=== PATIENT | male | born 1985 | race Hispanic/Latino ===

== ENCOUNTER 2018-06-17 20:53 | Emergency (ER) | payer OTHER ==
[2018-06-17] MEDS ORDERED: cloNIDine 0.1 MG TAB ONE (21:24)
== END 2018-06-17 21:45 | disposition home or self-care (01) ==
LOC: MADERS 20:53
DX: I10 Essential (primary) hypertension (principal); Z79.899 Other long term (current) drug therapy
CPT/HCPCS: 99283

== ENCOUNTER 2018-06-20 20:37 | Emergency (ER) | payer OTHER, SELFPAY ==
[2018-06-20 21:24] LABS: #Basophils 0.1 thou/uL (0.0-0.2); #Eosinphils 0.1 thou/uL (0.0-0.7); #Lymphocytes 2.5 thou/uL (1.20-3.40); #Monocytes 0.8 thou/uL (0.11-0.59); #Neutrophils 6.3 thou/uL (1.40-6.50); %Basophils 1.1 % (0.0-1.0); %Lymphocytes 25.4 % (21.0-51.0); %Monocytes 7.7 % (0.0-10.0); %Neutrophils 64.8 % (42.0-75.0); Hemoglobin 16.3 g/dL (14.0-18.0); Mean Corpuscular Hemoglobin 29.4 pg (27.0-31.0); Mean Corpuscular Volume 86.4 fL (78.0-98.0); Mean Platelet Volume 6.5 fL (7.4-10.4); Platelet Count 252 thou/uL (130-400); RBC Distribution Width 11.2 % (11.5-14.5); Red Blood Cell (RBC) Count 5.54 mill/uL (4.70-6.10); White Blood Cell (WBC) Count 9.8 thou/uL (4.8-10.8)
[2018-06-20 21:43] LABS: ALT (SGPT) 97 U/L (8-55); AST (SGOT) 42 U/L (5-34); Albumin 4.9 g/dL (3.5-5.0); Alkaline Phosphatase 102 U/L (40-150); Anion Gap 12 mmol/L (10-20); BUN (Urea Nitrogen) 19 mg/dL (8.9-20.6); Bilirubin, Total 0.5 mg/dL (0.2-1.2); Calc. Creatinine Clearance 0 mL/min (70-130); Calcium 9.6 mg/dL (7.8-10.44); Carbon Dioxide 24 mmol/L (22-29); Chloride 107 mmol/L (98-107); Estimated GFR-MDRD 62; Globulin 3.6 g/dL (2.4-3.5); Glucose 136 mg/dL (70-105); Potassium 3.4 mmol/L (3.5-5.1); Protein, Total 8.5 g/dL (6.0-8.3); Sodium 140 mmol/L (136-145)
--- NOTE | 2018-06-20 21:43 | RAD ---
CHEST TWO VIEWS: HISTORY: Hypertension and chest pain. COMPARISON: None. FINDINGS: Two views of the chest show normal sized cardiomediastinal silhouette. There is no evidence of consol idation, mass, or pleural effusion. The bones are unremarkable. IMPRESSION: No evidence of acute cardiopulmonary disease. POS: [facility]
[2018-06-20 22:00] LABS: CKMB 1.4 ng/mL (0-6.6)
[2018-06-20] MEDS ORDERED: cloNIDine 0.1 MG TAB ONE (22:09)
[2018-06-20] MEDS ORDERED: Sodium Chloride 0.9% 2,000 ML ONE (22:12)
== END 2018-06-20 23:35 | disposition short-term general hospital (02) ==
LOC: MADERS 20:37
DX: R94.31 Abnormal electrocardiogram [ECG] [EKG] (principal); R79.89 Other specified abnormal findings of blood chemistry; R00.0 Tachycardia, unspecified; I10 Essential (primary) hypertension
CPT/HCPCS: 36415; 71046; 80053; 82553; 84484; 85025; 85379; 93005; 96360; J7050

== ENCOUNTER 2018-06-28 21:42 | Emergency (ER) | payer OTHER, SELFPAY ==
--- NOTE | 2018-06-28 22:57 | RAD ---
EXAM: CHEST PA AND LATERAL: 06/28/18 HISTORY: 33-year-old male with history of shortness of breath. COMPARISON: 06/20/18. Heart size is within normal limits. The lungs are clear. No pneumonia, edema, or pleural effusions. IMPRESSION: No acute intrathoracic disease. POS: [facility]
== END 2018-06-28 23:13 | disposition home or self-care (01) ==
LOC: MADERS 21:42
DX: R00.2 Palpitations (principal); I10 Essential (primary) hypertension; Z79.899 Other long term (current) drug therapy
CPT/HCPCS: 71046; 93005

== ENCOUNTER 2019-03-27 11:14 | Emergency (ER) | payer BC, SELFPAY ==
[2019-03-27] MEDS ORDERED: Ibuprofen 800 MG TAB ONE (11:48)
[2019-03-27] MEDS ORDERED: Acetaminophen 500 MG TAB ONE (12:41)
== END 2019-03-27 13:33 | disposition home or self-care (01) ==
LOC: MADERS 11:14
DX: B34.9 Viral infection, unspecified (principal); I10 Essential (primary) hypertension; Z79.899 Other long term (current) drug therapy
CPT/HCPCS: 87804; 99283

== ENCOUNTER 2019-09-18 03:05 | Emergency (ER) | payer BC ==
[2019-09-18 03:41] LABS: #Basophils 0.1 thou/uL (0.0-0.2); #Eosinphils 0.1 thou/uL (0.0-0.7); #Monocytes 0.5 thou/uL (0.11-0.59); #Neutrophils 3.3 thou/uL (1.40-6.50); %Basophils 1.1 % (0.0-1.0); %Eosinophils 1.9 % (0.0-10.0); %Lymphocytes 33.6 % (21.0-51.0); %Monocytes 8.5 % (0.0-10.0); Hemoglobin 14.2 g/dL (14.0-18.0); Mean Corpuscular HGB CONC 32.8 g/dL (32.0-36.0); Mean Corpuscular Volume 85.3 fL (78.0-98.0); Mean Platelet Volume 6.9 fL (7.4-10.4); Platelet Count 203 thou/uL (130-400); RBC Distribution Width 11.3 % (11.5-14.5); Red Blood Cell (RBC) Count 5.09 mill/uL (4.70-6.10); White Blood Cell (WBC) Count 6.1 thou/uL (4.8-10.8)
[2019-09-18 04:00] LABS: ALT (SGPT) 22 U/L (8-55); AST (SGOT) 23 U/L (5-34); Albumin 4.4 g/dL (3.5-5.0); Alkaline Phosphatase 81 U/L (40-110); Anion Gap 18 mmol/L (10-20); BUN (Urea Nitrogen) 19 mg/dL (8.9-20.6); Bilirubin, Total 0.7 mg/dL (0.2-1.2); Calc. Creatinine Clearance 0 mL/min (70-130); Calcium 9.2 mg/dL (7.8-10.44); Carbon Dioxide 24 mmol/L (22-29); Chloride 99 mmol/L (98-107); Estimated GFR-MDRD 69; Globulin 3.1 g/dL (2.4-3.5); Glucose 117 mg/dL (70-105); Protein, Total 7.5 g/dL (6.0-8.3); Sodium 138 mmol/L (136-145)
[2019-09-18 04:24] LABS: Potassium 2.9 mmol/L (3.5-5.1)
--- NOTE | 2019-09-18 07:43 | RAD ---
SINGLE VIEW CHEST: Date: 09/18/2019 COMPARISON: 03/29/2019. HISTORY: Chest pain. FINDINGS: Single view of the chest shows a normal sized cardiomediastinal silhouette. There is no evidence of c onsolidation, mass, or pleural effusion. The bones are unremarkable. IMPRESSION: No evidence of acute cardiopulmonary disease. POS: [facility]
== END 2019-09-18 04:17 | disposition home or self-care (01) ==
LOC: MADERS 03:05
DX: F41.9 Anxiety disorder, unspecified (principal); I10 Essential (primary) hypertension; Z79.899 Other long term (current) drug therapy; R68.83 Chills (without fever)
CPT/HCPCS: 71045; 80053; 84484; 85025; 93005